=== PATIENT | male | born 1990 | race African-American/Black ===

== ENCOUNTER 2022-03-07 21:14 | Inpatient (IN) | payer SELFPAY ==
[2022-03-07] MEDS ORDERED: NA CHLORIDE 0.9% 1,000 ML ONE (22:21)
[2022-03-07 22:25] LABS: Absolute Lymphocytes (CBC) 0.9 K/uL (0.7-4.9); Hematocrit 58.8 % (39.6-49.0); Lymphocytes % 9.8 % (15.3-44.8); MPV 10.2 fL (7.6-11.3); RBC Red Blood Cell Count 7.04 M/uL (4.33-5.43)
--- NOTE | 2022-03-07 22:34 | RAD REPORT ---
EXAM DESCRIPTION: Samira Single View03/07/2022 10:26 pm CLINICAL HISTORY: Syncope COMPARISON: none FINDINGS: Calcified granuloma right lung. The lungs appear clear of acute infiltrate. The heart is normal size IMPRESSION: No acute abnormalities displayed
[2022-03-07 22:54] LABS: Potassium 4.4 mmol/L (3.5-5.1); Troponin High Sensitivity 5.9 pg/mL (<58.9)
--- NOTE | 2022-03-07 23:14 | EDPHYS ---
Physician Documentation [facility] Name: Dav Doan Age: 31 yrs Sex: Male : 1990 Arrival Date: 03/07/2022 Time: 21:16 Bed 3 Private MD: ED Physician Rolando Caraballo HPI: 03/07 23:15 This 31 yrs old Black Male presents to ER via EMS with complaints of nausea, vomiting, ms3 muscle cramping, syncope. 23:15 The patient presents to the emergency department with nausea, that is severe, vomiting, ms3 that is continuous, described as undigested food. Onset: The symptoms/episode began/occurred yesterday. Possible causes: unknown. The symptoms are aggravated by nothing. The symptoms are alleviated by nothing. Associated signs and symptoms: Pertinent positives: nausea, vomiting, syncope. Severity of symptoms: At their worst the symptoms were severe in the emergency department the symptoms are unchanged Pain is currently a 6 / 10. 31-year-old male presents via [facility] for nausea, vomiting, syncopal episode. Patient's states patient became hot at work and began sweating and had a syncopal episode. 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 Patient's states patient then came home and has been unable to keep down food or fluids. Patient states he is having thigh cramping that began last night. Patient rates his discomfort as 6/10. Patient denies alleviating or inciting factors.. Historical: - Allergies: 21:21 No Known Allergies; kd3 - Home Meds: 21:21 None [Active]; kd3 - PMHx: 21:21 None; kd3 - PSHx: 21:21 None; kd3 - Immunization history:: Adult Immunizations up to date, Client reports having NOT received the Covid vaccine. - Social history:: Smoking status: unknown. ROS: 23:15 Constitutional: Negative for fever, and chills. Neck: Negative for injury, pain, and ms3 swelling, Cardiovascular: Negative for chest pain, and palpitations. Respiratory: Negative for shortness of breath, cough, wheezing, and pleuritic chest pain, Abdomen/GI: Negative for abdominal pain, nausea, vomiting, diarrhea, and constipation. 23:15 MS/extremity: Positive for Muscle cramping. 23:15 All other systems are negative. Exam: 22:18 ECG was reviewed by the Attending Physician. ms3 23:15 Constitutional: This is a well developed, well nourished patient who is awake, alert, ms3 and in no acute distress. Head/Face: Normocephalic, atraumatic. Neck: Trachea midline, no cervical lymphadenopathy. Supple, full range of motion without nuchal rigidity, or vertebral point tenderness. No Meningismus. Chest/axilla: Normal chest wall appearance and motion. Nontender with no deformity. Cardiovascular: Regular rate and rhythm with a normal S1 and S2. No gallops, murmurs, or rubs. Normal PMI, no JVD. No pulse deficits. Respiratory: Lungs have equal breath sounds bilaterally, clear to auscultation and percussion. No rales, rhonchi or wheezes noted. No increased work of breathing, no retractions or nasal flaring. Abdomen/GI: Soft, non-tender, with normal bowel sounds. No distension or tympany. No guarding or rebound. No evidence of tenderness throughout. Skin: Warm, dry with normal turgor. Normal color with no rashes, no lesions, and no evidence of cellulitis. Psych: Awake, alert, with orientation to person, place and time. Behavior, mood, and affect are within normal limits. Vital Signs: 21:17 Pulse 80; Resp 19; Temp 98.3; Pulse Ox 95% on R/A; Weight 98.43 kg; Height 5 ft. 6 in. kd3 (167.64 cm); Pain 4/10; 21:23 BP 140 / 90; kd3 23:17 BP 130 / 90; Pulse 73; Resp 18; Pulse Ox 98% ; kd3 0603 00:38 BP 128 / 82; Pulse 72; Resp 19; Pulse Ox 99% on R/A; kd3 03/07 21:17 Body Mass Index 35.02 (98.43 kg, 167.64 cm) kd3 MDM: 03/07 21:59 Patient medically screened. ms3 23:15 Differential diagnosis: Nonspecific abd pain, Rhabdo vs ACS. Data reviewed: vital ms3 signs, nurses notes, lab test result(s), EKG, radiologic studies. Data interpreted: compliance monitor: rate is 73 beats/min, rhythm is normal sinus rhythm, with no ectopy, Interpretation: normal rate, normal rhythm, Pulse oximetry: on room air is 98 %. Interpretation: normal. Counseling: I had a detailed discussion with the patient and/or guardian regarding: the historical points, exam findings, and any diagnostic results supporting the discharge/admit diagnosis, lab results, radiology results, the need for further work-up and treatment in the hospital. ED course: Discussed case with ANTHONY Maxwell and she accepts patient as admission for Dr Blankenship.. 03/07 22:02 Order name: Basic Metabolic Panel; Complete Time: 22:58 ms3 / 22:58 Interpretation: Abnormal: CRE 4.43. ms3 / 22:02 Order name: CBC with Diff; Complete Time: 22:45 ms3 03/07 22:02 Order name: Troponin HS; Complete Time: 22:58 ms3 03/07 22:02 Order name: CK; Complete Time: 22:58 ms3 03/07 23:15 Order name: COVID-19 SARS RT PCR (Document "Date of Onset" if Symptomatic) ms3 03/07 23:51 Order name: Urine Dipstick-Ancillary EDMS 03/07 22:02 Order name: XRAY Chest (1 view); Complete Time: 22:45 ms3 02 22:02 Order name: EKG; Complete Time: 22:02 ms3 03/07 22:02 Order name: Cardiac monitoring; Complete Time: 22:25 ms3 02 22:02 Order name: EKG - Nurse/Tech; Complete Time: 22:25 ms3 03/07 22:02 Order name: IV Saline Lock; Complete Time: 22:06 ms3 02 22:02 Order name: Labs collected and sent; Complete Time: 22:14 ms3 / 22:02 Order name: O2 Per Protocol; Complete Time: 22:06 ms3 03/07 22:02 Order name: O2 Sat Monitoring; Complete Time: 22:06 ms3 /02 23:33 Order name: Urine Dipstick-Ancillary (obtain specimen); Complete Time: 23:50 sb3 EC:18 Rate is 74 beats/min. Rhythm is regular. QRS [place] is Normal. SC interval is normal. QRS ms3 interval is normal. Clinical impression: NSR w/ Non-specific ST/T Changes. Interpreted by me. Administered Medications: 22:25 Drug: NS 0.9% 1000 ml Route: IV; Rate: 1000 ml; Site: left antecubital; kd3 23:18 Follow up: Response: No adverse reaction; IV Status: Completed infusion kd3 03/08 00:39 Follow up: Response: No adverse reaction; IV Status: Completed infusion kd3 Disposition Summary: 03/07/22 23:13 Hospitalization Ordered Hospitalization Status: Inpatient Admission ms3 Provider: Juanpablo Blankenship ms3 Location: Telemetry/MedSur (Inpatient) ms3 Condition: Stable ms3 Problem: new ms3 Symptoms: are unchanged ms3 Bed/Room Type: Standard ms3 Room Assignment: 205(03/08/22 00:32) mw Diagnosis - Acute Renal Failure ms3 - Rhabdomyolysis ms3 - Nausea with vomiting, unspecified ms3 - Dehydration ms3 Forms: - Medication Reconciliation Form ms3 - SBAR form ms3 Signatures: Dispatcher [employer] EDCha Lamar RN RN mw Rolando Caraballo DO DO ms3 Saray Ray RN RN kd3 Ana Teresa PA PA sb3 Corrections: (The following items were deleted from the chart) 00:32 03/07 23:13 ms3 mw
--- NOTE | 2022-03-07 23:14 | ER ---
Nurse's Notes [facility] Name: Dav Doan Age: 31 yrs Sex: Male : 1990 Arrival Date: 03/07/2022 Time: 21:16 Bed 3 Private MD: Diagnosis: Acute Renal Failure;Rhabdomyolysis;Nausea with vomiting, unspecified;Dehydration Presentation: 03/07 21:17 Chief complaint: EMS states: 31 y/o male, toned out for pt having syncopal episodes on kd3 and off throughout the day. pt generally not feeling well, has full body cramps and headache. 1 episode of vomiting witnessed by EMS. 1 L NS bolus given en route. Coronavirus screen: Vaccine status: Patient reports being unvaccinated. Ebola Screen: No symptoms or risks identified at this time. Initial Sepsis Screen: Does the patient meet any 2 criteria? No. Patient's initial sepsis screen is negative. Does the patient have a suspected source of infection? No. Patient's initial sepsis screen is negative. Risk Assessment: Do you want to hurt yourself or someone else? Patient reports no desire to harm self or others. Onset of symptoms was March 07, 2022. 21:17 Method Of Arrival: EMS: [facility] kd3 21:17 Acuity: DUSTIN 3 kd3 Triage Assessment: 21:21 General: Appears uncomfortable, Behavior is calm, cooperative. Pain: Complains of pain kd3 in generalized aches. Neuro: Level of Consciousness is awake, alert, obeys commands, Oriented to person, place, time, situation. Cardiovascular: Patient's skin is warm and dry. Respiratory: Airway is patent Trachea midline Respiratory effort is even, unlabored, Respiratory pattern is regular, symmetrical. Historical: - Allergies: 21:21 No Known Allergies; kd3 - Home Meds: 21:21 None [Active]; kd3 - PMHx: 21:21 None; kd3 - PSHx: 21:21 None; kd3 - Immunization history:: Adult Immunizations up to date, Client reports having NOT received the Covid vaccine. - Social history:: Smoking status: unknown. Screenin:22 Abuse screen: Denies threats or abuse. Denies injuries from another. Nutritional kd3 screening: No deficits noted. Tuberculosis screening: No symptoms or risk factors identified. Fall Risk IV access (20 points). Assessment: 03/08 01:10 Reassessment: Patient and/or family updated on plan of care and expected duration. Pain kd3 level reassessed. Patient is alert, oriented x 3, equal unlabored respirations, skin warm/dry/pink. Patient states feeling better. General: Appears in no apparent distress. Behavior is calm, cooperative. Neuro: Level of Consciousness is awake, alert, obeys commands, Oriented to person, place, time, situation. Cardiovascular: Patient's skin is warm and dry. Respiratory: Airway is patent Trachea midline Respiratory effort is even, unlabored, Respiratory pattern is regular. Vital Signs: 03/07 21:17 Pulse 80; Resp 19; Temp 98.3; Pulse Ox 95% on R/A; Weight 98.43 kg; Height 5 ft. 6 in. kd3 (167.64 cm); Pain 4/10; 21:23 BP 140 / 90; kd3 23:17 BP 130 / 90; Pulse 73; Resp 18; Pulse Ox 98% ; kd3 03/08 00:38 BP 128 / 82; Pulse 72; Resp 19; Pulse Ox 99% on R/A; kd3 03/07 21:17 Body Mass Index 35.02 (98.43 kg, 167.64 cm) kd3 ED Course: 03/07 21:16 Patient arrived in ED. as6 21:16 Saray Ray, RN is Primary Nurse. kd3 21:16 Rolando Caraballo DO is Attending Physician. ms3 21:21 Triage completed. kd3 21:21 Arm band placed on right wrist. kd3 21:23 Patient has correct armband on for positive identification. kd3 22:28 XRAY Chest (1 view) In Process Unspecified. EDMS 23:12 Juanpablo Blankenship is Hospitalizing Provider. ms3 03/08 00:37 No provider procedures requiring assistance completed. Maintain EMS IV. Dressing kd3 intact. Good blood return noted. Site clean \T\ dry. Gauge \T\ site: 20 l ac. Patient admitted, IV remains in place. Administered Medications: 03/07 22:25 Drug: NS 0.9% 1000 ml Route: IV; Rate: 1000 ml; Site: left antecubital; kd3 23:18 Follow up: Response: No adverse reaction; IV Status: Completed infusion kd3 03/08 00:39 Follow up: Response: No adverse reaction; IV Status: Completed infusion kd3 Medication: 03/07 21:23 VIS not applicable for this client. kd3 Outcome: 23:13 Decision to Hospitalize by Provider. ms3 03/08 00:37 Admitted to Med/surg room 205, Report called to attempted report to 2nd floor kd3 Condition: stable Discharge instructions given to patient, family, Instructed on the need for admit, Demonstrated understanding of instructions. 01:19 Patient left the ED. as6 Signatures: Dispatcher [employer] EDMS Rolando Caraballo DO DO ms3 Jace Naqvi, RN RN as6 Saray Ray, RN RN kd3
[2022-03-07 23:51] LABS: Urine Blood 1+ (Negative); Urine Glucose Negative (Negative); Urine Protein 2+ (Negative); Urine Specific Gravity >=1.030 (1.005-1.030)
--- NOTE | 2022-03-08 00:17 | P.HP ---
Certification for Inpatient Patient admitted to: Inpatient With expected LOS: <2 Midnights Patient will require the following post-hospital care: None Practitioner: I am a practitioner with admitting privileges, knowledge of patient current condition, hospital course, and medical plan of care. Services: Services provided to patient in accordance with Admission requirements found in Title 42 Section 412.3 of the Code of Federal Regulations Patient History Date of Service: 03/08/22 Reason for admission: Rhabdomyolysis History of Present Illness: Patient is a 31 y/o male with no medical problems who presented to the ED via EMS after being toned out for syncopal episodes on and off throughout the day. Patient reports full body cramps, headache, nausea, vomiting, and generalized weakness. 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 He in not sure how long he was down. These episodes continued when he got home and he couldn't hold down any food or water. He later admitted to recent use of ecstasy. Labs significant for sodium 133, Cr 4.43, BUN 44, and CPK 1150. He was given 1L fluid by EMS and an additional liter in the ED. Will admit patient for further evaluation and treatment. Allergies No Known Allergies Allergy (Verified 03/08/22 00:23) Home Medications: NK [No Home Meds] 03/08/22 - Past Medical/Surgical History Diabetic: No Past Medical History: Patient denies medical history Past Surgical History: Patient denies surgical history Psychosocial/ Personal History: Patient lives at home with his significant othe r. - Social History Smoking Status: Current every day smoker Alcohol use: Yes CD- Drugs: Yes Caffeine use: Yes Place of Residence: Home Review of Systems General: Weakness, As per HPI Gastrointestinal: Nausea, Vomiting, Abdominal Pain Physical Examination - Physical Exam General: Alert, In no apparent distress HEENT: Atraumatic, PERRLA, EOMI, Sclerae nonicteric Neck: Supple, 2+ carotid pulse no bruit, No LAD, Without JVD or thyroid abnormality Respiratory: Clear to auscultation bilaterally, Normal air movement Cardiovascular: Regular rate/rhythm, Normal S1 S2 Gastrointestinal: Normal bowel sounds, No tenderness Musculoskeletal: No tenderness Integumentary: No rashes Neurological: Normal speech, Normal strength at 5/5 x4 extr, Normal affect - Studies Laboratory Data (last 24 hrs) 03/07/22 22:12: WBC 8.8, Hgb 19.6 H, Hct 58.8 H, Plt Count 235 03/07/22 22:12: Sodium 133 L, Potassium 4.4, BUN 44 H, Creatinine 4.43 H, Glucose 154 H Assessment and Plan - Problems (Diagnosis) (1) Rhabdomyolysis Current Visit: Yes Status: Acute Qualifiers: Rhabdomyolysis type: non-traumatic Qualified Code(s): M62.82 - Rhabdomyolysis (2) Acute renal failure Current Visit: Yes Status: Acute Qualifiers: Acute renal failure type: unspecified Qualified Code(s): N17.9 - Acute kidney failure, unspecified (3) Dehydration Current Visit: Yes Status: Acute - Plan -Aggressive IV hydration -Trend CPK and creatinine -Nephrology consulted -Encourage PO intake -Heparin for VTE ppx -Full code Discharge Plan: Home Plan to discharge in: 48 Hours - Advance Directives Does patient have a Living Will: No Does patient have a Durable POA for Healthcare: No - Code Status/Comfort Care Code Status Assessed: Yes (Full) Critical Care: No Time Spent Managing Pts Care (In Minutes): 50
[2022-03-08] MEDS ORDERED: ACETAMINOPHEN 500 MG TAB PO PRN (01:03)
[2022-03-08] MEDS ORDERED: ONDANSETRON 4 MG/2 ML VIAL IV PRN (01:03)
[2022-03-08] MEDS: NA CHLORIDE 0.9% 1,000 ML IV SCH ×3 (01:31→19:07)
[2022-03-08] MEDS: HEPARIN 5000 UNIT/ML 1 ML VIAL SQ SCH ×3 (01:32→16:51)
[2022-03-08 01:47] VITALS: BMI 32.8
[2022-03-08 04:30] LABS: Absolute Lymphocytes (CBC) 1.2 K/uL (0.7-4.9); Hematocrit 51.9 % (39.6-49.0); Lymphocytes % 12.7 % (15.3-44.8); MPV 10.6 fL (7.6-11.3); RBC Red Blood Cell Count 6.27 M/uL (4.33-5.43)
[2022-03-08 05:39] LABS: Urine Appearance Clear (Clear); Urine Bilirubin Negative (Negative); Urine Blood Trace-lysed (Negative); Urine Color Yellow (Yellow); Urine Glucose Negative (Negative); Urine Protein 1+ (Negative); Urine Specific Gravity >=1.030 (1.005-1.030); Urine Urobilinogen 0.2 mg/dL (0.2-1.0)
[2022-03-08 05:46] LABS: Urine Microscopic Reflex ORDER UMIC
[2022-03-08 05:50] LABS: Urine Bacteria 20-50 /HPF (NONE SEEN)
[2022-03-08 05:51] LABS: Urine Amorphous Sediment 1+ /HPF (NONE SEEN); Urine Mucus 3+ /HPF (NONE SEEN)
[2022-03-08 05:55] LABS: Barbiturates NEGATIVE (NEGATIVE); Benzodiazepines NEGATIVE (NEGATIVE); Cocaine NEGATIVE (NEGATIVE); METHAMPHETAM POSITIVE (NEGATIVE); Methadone NEGATIVE (NEGATIVE); Opiates NEGATIVE (NEGATIVE); Phencyclidine NEGATIVE (NEGATIVE); THC Cannibis POSITIVE (NEGATIVE)
--- NOTE | 2022-03-08 11:17 | P.CNS ---
Date of Consult: 03/08/22 Reason for Consult: stefan Requesting Physician: ana luisa hawthorne Chief Complaint: Rhabdomyolysis History of Present Illness: 31M w/ no known PMHx who p/w syncope. 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 He is noted to have STEFAN w/ mild rhabdo. He received IVF. STEFAN improving. Allergies No Known Allergies Allergy (Verified 03/08/22 00:23) Home Medications: NK [No Home Meds] 03/08/22 - Past Medical/Surgical History Diabetic: No Psychosocial/ Personal History: Patient lives at home with his significant other. - Social History Smoking Status: Unknown if ever smoked Alcohol use: Yes CD- Drugs: Yes Caffeine use: Yes Place of Residence: Home Review of Systems General: Weakness Eyes: Unremarkable ENT: Unremarkable Respiratory: Unremarkable Cardiovascular: Other (syncope), Unremarkable Gastrointestinal: Unremarkable Genitourinary: Unremarkable Musculoskeletal: Unremarkable Neurological: Unremarkable Lymphatics: Unremarkable Physical Examination Temp Pulse Resp BP Pulse Ox 98.7 F 70 18 125/79 92 03/08/22 08:00 03/08/22 08:00 03/08/22 08:00 03/08/22 08:00 03/08/22 08:00 General: In no apparent distress HEENT: Atraumatic, Normocephalic Neck: Supple, JVD not distended Respiratory: Clear to auscultation bilaterally Cardiovascular: No rubs, No murmurs Gastrointestinal: Soft and benign, No guarding Musculoskeletal: No clubbing Integumentary: No warmth Neurological: Normal speech, Normal tone Lymphatics: No axilla or inguinal lymphadenopathy Urinary: Other (no bladder distention) External genitalia: Deferred Rectal: Deferred Laboratory Data (last 24 hrs) 03/07/22 22:12: WBC 8.8, Hgb 19.6 H, Hct 58.8 H, Plt Count 235 03/07/22 22:12: Sodium 133 L, Potassium 4.4, BUN 44 H, Creatinine 4.43 H, Glucose 154 H Conclusions/Impression: # STEFAN 2/2 prerenal state +/- ATN Baseline renal fxn ? SCr 4.4 on adm, improved to 3.2 w/ IVF Has mild rhabdo, not high enough to be contributory to stefan PTH not sig elevated, no advanced CKD at baseline F/u renal US, urine chem, random upcr Cont IVF [place] po fluid intake # Syncope likely 2/2 hypovolemia F/u TTE IVF as above # Hyponatremia Serum Na 133 on adm Improved to 136, monitor # HyperCa Mild, resolved, monitor IVF as above # Polysubstance use Drug screen +amphetamine, + THC Advised cessation
--- NOTE | 2022-03-08 11:59 | P.PN ---
Date of Service: 03/08/22 Patient seen and examined. He has no complaint. He is eating well, denies any nausea or vomiting or diarrhea. Serum creatinine is trending down. Vitals have been stable. Diagnosis: Syncope-likely secondary to dehydration. Acute renal failure. Plan: STEFAN is responding to IV fluid Continue IV hydration and monitor renal function. Cardiac monitoring, echocardiogram. Diet as tolerated..
--- NOTE | 2022-03-08 14:04 | RAD REPORT ---
EXAM DESCRIPTION: US - Renal Ultrasound-Complete - 03/08/2022 1:29 pm CLINICAL HISTORY: liz, assess for hydronephrosis, pyelonephritis COMPARISON: No comparisons FINDINGS: The right kidney measures approximately 9.7 x 4.9 x 6.2 cm. The left kidney measures appr oximately 10.4 x 6.7 x 5.6 cm. Renal cortical thickness is normal. Both kidneys show a slight increas e in cortical echogenicity consistent with underlying medical renal disease. No hydronephrosis or darron picious renal mass. Bladder assessment was limited but grossly clear of mass or abnormal wall thickening. No stone or int raluminal abnormality seen. IMPRESSION: No hydronephrosis of either kidney. Increased cortical echogenicity consistent with underlying medical renal disease.
[2022-03-08 14:57] LABS: UR PROTEIN 21.1 mg/dL (<11.9); Urine Protein/Creatinine Ratio 0.1 ratio (<0.15)
[2022-03-09] MEDS: HEPARIN 5000 UNIT/ML 1 ML VIAL SQ SCH ×2 (00:35→08:56)
[2022-03-09 01:07] VITALS: O2SAT 96
[2022-03-09] MEDS: NA CHLORIDE 0.9% 1,000 ML IV SCH ×2 (04:58→09:03)
[2022-03-09 06:11] LABS: Absolute Lymphocytes (CBC) 2.2 K/uL (0.7-4.9); Hematocrit 45.8 % (39.6-49.0); Lymphocytes % 41.2 % (15.3-44.8); MPV 9.9 fL (7.6-11.3); RBC Red Blood Cell Count 5.44 M/uL (4.33-5.43)
[2022-03-09 06:25] LABS: Potassium 3.9 mmol/L (3.5-5.1)
[2022-03-09 11:42] VITALS: BP 122/75; TEMP 98.3
--- NOTE | 2022-03-09 12:29 | P.DS ---
Admission Date: 03/08/22 Discharge Date: 03/09/22 Disposition: ROUTINE DISCHARGE Discharge Condition: FAIR Reason for Admission: Rhabdomyolysis - Problems (1) Acute renal failure Current Visit: Yes Status: Acute Qualifiers: Acute renal failure type: unspecified Qualified Code(s): N17.9 - Acute kidney failure, unspecified (2) Syncope Current Visit: Yes Status: Acute (3) Rhabdomyolysis Current Visit: Yes Status: Acute Qualifiers: Rhabdomyolysis type: non-traumatic Qualified Code(s): M62.82 - Rhabdomyolysis (4) Dehydration Current Visit: Yes Status: Acute (5) Polysubstance abuse Current Visit: Yes Status: Acute Brief History of Present Illness: Patient is a 31 y/o male with no medical problems who presented to the ED via EMS after being toned out for syncopal episodes on and off throughout the day. Patient reports full body cramps, headache, nausea, vomiting, and generalized weakness. 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 He in not sure how long he was down. These episodes continued when he got home and he couldn't hold down any food or water. He later admitted to recent use of ecstasy. Labs significant for sodium 133, Cr 4.43, BUN 44, and CPK 1150. He was given 1L fluid by EMS and an additional liter in the ED. Will admit patient for further evaluation and treatment. Hospital Course: Patient admitted to the medical floor and hydrated with IV fluid. His renal function improved to normal with IV hydration. Patient was evaluated by nephrology- Dr. Rose who assisted with management. Patient given history of possible syncope. Echocardiogram was done and the result is pending. His blood pressure was stable and he was asymptomatic throughout the hospital stay. STEFAN and rhabdomyolysis have resolved. Patient is deemed stable for discharge. Vital Signs/Physical Exam: Temp Pulse Resp BP Pulse Ox 98.3 F 74 18 122/75 95 03/09/22 11:41 03/09/22 11:41 03/09/22 11:41 03/09/22 11:41 03/09/22 11:41 General: Alert, In no apparent distress, Oriented x3 HEENT: Mucous membr. moist/pink Neck: JVD not distended Respiratory: Clear to auscultation bilaterally, Normal air movement Cardiovascular: No edema, Regular rate/rhythm, Normal S1 S2 Gastrointestinal: Normal bowel sounds, Soft and benign, Non-distended, No tenderness Musculoskeletal: No swelling, No tenderness Integumentary: No rashes, No erythema, No cyanosis Neurological: Normal speech, Normal strength at 5/5 x4 extr, Cranial nerves 3-12 intact Laboratory Data at Discharge: WBC 5.3 K/uL (4.3-10.9) D 03/09/22 05:50 Hgb 15.1 g/dL (13.6-17.9) D 03/09/22 05:50 Hct 45.8 % (39.6-49.0) 03/09/22 05:50 Plt Count 181 K/uL (152-406) 03/09/22 05:50 Sodium 140 mmol/L (136-145) 03/09/22 05:50 Potassium 3.9 mmol/L (3.5-5.1) 03/09/22 05:50 BUN 24 mg/dL (7-18) H D 03/09/22 05:50 Creatinine 1.30 mg/dL (0.55-1.3) D 03/09/22 05:50 Glucose 106 mg/dL (74-106) 03/09/22 05:50 Home Medications: NK [No Home Meds] 03/08/22 Diet: AHA Activity: Ad brianna Time spent managing pt's care (in minutes): 33
--- NOTE | 2022-03-09 14:30 | EKG ---
Test Date: 2022-03-07 Test Time: 22:18:45 Slasher Machine Operator: SHANNON MEASUREMENT RESULTS: Intervals: Rate: 74 DC: 180 QRSD: 134 QT: 392 QTc: 435 [place]: P: 71 DC: 180 QRS: 57 T: 39 INTERPRETIVE STATEMENTS: Normal sinus rhythm Nonspecific intraventricular block Abnormal ECG No previous ECG available for comparison Electronically Signed On 03-09-22 14:29:48 CDT by Diego Flanagan
--- NOTE | 2022-03-11 06:52 | ECHO ---
HEIGHT: 5 ft 6 in WEIGHT: 203 lb 9.6 oz DATE OF STUDY: 03/08/[address]: ana luisa hawthorne 2-DIMENSIONAL: YES M.MODE: YES DOPPLER: YES COLOR FLOW: YES TDS: PORTABLE: YES DEFINITY: BUBBLE STUDY: DIAGNOSIS: SYNCOPE CARDIAC HISTORY: CATHERIZATION: NO SURGERY: NO PROSTHETIC VALVE: NO PACEMAKER: NO MEASUREMENTS (cm) DIASTOLIC (NORMALS) SYSTOLIC (NORMALS) IVSd 1.0 (0.6-1.2) LA Diam 3.1 (1.9-4.0) LVEF 55-60% LVIDd 4.5 (3.5-5.7) LVIDs 2.8 (2.0-3.5) %FS 39% LVPWd 1.1 (0.6-1.2) Ao Diam 2.9 (2.0-3.7) 2 DIMENSIONAL ASSESSMENT: RIGHT ATRIUM: NORMAL LEFT ATRIUM: NORMAL RIGHT VENTRICLE: NORMAL LEFT VENTRICLE: NORMAL TRICUSPID VALVE: NORMAL MITRAL VALVE: NORMAL PULMONIC VALVE: NORMAL AORTIC VALVE: NORMAL PERICARDIAL EFFUSION: NONE AORTIC ROOT: NORMAL LEFT VENTRICULAR WALL MOTION: NORMAL DOPPLER/COLOR FLOW: MILD TRICUSPID REGURGITATION. MILD PULMONIC INSUFFICIENCY COMMENTS: NORMAL LEFT VENTRICULAR EJECTION FRACTION 55-60%. NORMAL WALL MOTION. MILD TRICUSPID REGURGITATION. MILD PULMONIC INSUFFICIENCY TECHNOLOGIST: LALO JOSÉ
== END 2022-03-09 13:00 | disposition home or self-care (01) | DRG 683 ==
LOC: ER 21:14 → ERHOLD 03-08 00:05 → 2ND 03-08 00:51
PROVIDERS: ADMIT Internal Medicine; ATTEND Internal Medicine
DX: N17.9 Acute kidney failure, unspecified (principal); M62.82 Rhabdomyolysis; E87.1 Hypo-osmolality and hyponatremia; E86.0 Dehydration; F17.210 Nicotine dependence, cigarettes, uncomplicated; F19.10 Other psychoactive substance abuse, uncomplicated; Z20.822 Contact with and (suspected) exposure to COVID-19
CPT/HCPCS: 36415; 71045; 76770; 80048; 80307; 81003; 81015; 82550; 82570; 83935; 83970; 84132; 84156; 84300; 84484; 85025; 87086; 87088; 93005; 93306; 96360; 99285; J1644; J7030; U0003

== ENCOUNTER 2022-05-08 10:33 | Emergency (ER) | payer SELFPAY ==
[2022-05-08] MEDS ORDERED: HYDROCODONE/APAP 10/325 TAB ONE (10:53)
[2022-05-08] MEDS ORDERED: IBUPROFEN 400 MG TAB ONE (10:53)
--- NOTE | 2022-05-08 11:30 | RAD REPORT ---
EXAM DESCRIPTION: RAD - Ankle Right 3 View - 05/08/2022 10:52 am CLINICAL HISTORY: Right ankle pain status post injury FINDINGS: Minimally displaced fracture distal fibula. Widening of the medial clear space may indicate an injury to the deltoid ligament.
--- NOTE | 2022-05-08 11:30 | RAD REPORT ---
EXAM DESCRIPTION: RAD - Foot Right 3 View - 05/08/2022 10:52 am CLINICAL HISTORY: Right foot pain status post injury FINDINGS: Minimally displaced fracture distal fibula. Widening of the medial clear space may indicate an injury to the deltoid ligament. Mild lateral subluxation of the second distal phalanx presumably chronic
--- NOTE | 2022-05-08 11:40 | EDPHYS ---
Physician Documentation [facility] Name: Dav Doan Age: 32 yrs Sex: Male : 1990 Arrival Date: 05/08/2022 Time: 10:34 Bed 8 Private MD: KEVIN Physician Milton Ellis HPI: 05/08 11:28 This 32 yrs old Black Male presents to ER via Law Enforcement with complaints of Foot alban Pain. 11:28 The patient presents with pain, that is acute. The complaints affect the right foot, alban dorsum of right foot. Context: resulted from a mis-step by the patient. Onset: The symptoms/episode began/occurred last night. Modifying factors: The symptoms are alleviated by elevation of extremity, ice packs, the symptoms are aggravated by weight bearing, movement, wearing shoes. Associated signs and symptoms: The patient has no apparent associated signs or symptoms. Severity of symptoms: At their worst the symptoms were moderate, in the emergency department the symptoms are unchanged. The patient has not experienced similar symptoms in the past. 11:29 Severity of symptoms: At their worst the symptoms were moderate. alban Historical: - Allergies: 11:02 No Known Allergies; em6 - Immunization history:: Client reports receiving the 1st dose of the Covid vaccine. - Social history:: Smoking status: Patient denies any tobacco usage or history of. - Family history:: not pertinent. ROS: 11:29 Constitutional: Negative for fever, chills, and weight loss, Eyes: Negative for injury, alban pain, redness, and discharge, ENT: Negative for injury, pain, and discharge, Neck: Negative for injury, pain, and swelling, Cardiovascular: Negative for chest pain, palpitations, and edema, Respiratory: Negative for shortness of breath, cough, wheezing, and pleuritic chest pain, Abdomen/GI: Negative for abdominal pain, nausea, vomiting, diarrhea, and constipation, Back: Negative for injury and pain, : Negative for injury, bleeding, discharge, and swelling, Skin: Negative for injury, rash, and discoloration, Neuro: Negative for headache, weakness, numbness, tingling, and seizure, Psych: Negative for depression, anxiety, suicide ideation, homicidal ideation, and hallucinations, Allergy/Immunology: Negative for hives, rash, and allergies, Endocrine: Negative for neck swelling, polydipsia, polyuria, polyphagia, and marked weight changes, Hematologic/Lymphatic: Negative for swollen nodes, abnormal bleeding, and unusual bruising. 11:29 MS/extremity: Positive for decreased range of motion, pain, swelling, tenderness, of the right ankle and anterior aspect of right ankle. Exam: 11:29 Constitutional: This is a well developed, well nourished patient who is awake, alert, alban and in no acute distress. Head/Face: Normocephalic, atraumatic. Eyes: Pupils equal round and reactive to light, extra-ocular motions intact. Lids and lashes normal. Conjunctiva and sclera are non-icteric and not injected. Cornea within normal limits. Periorbital areas with no swelling, redness, or edema. ENT: Nares patent. No nasal discharge, no septal abnormalities noted. Tympanic membranes are normal and external auditory canals are clear. Oropharynx with no redness, swelling, or masses, exudates, or evidence of obstruction, uvula midline. Mucous membranes moist. Neck: Trachea midline, no thyromegaly or masses palpated, and no cervical lymphadenopathy. Supple, full range of motion without nuchal rigidity, or vertebral point tenderness. No Meningismus. Chest/axilla: Normal chest wall appearance and motion. Nontender with no deformity. No lesions are appreciated. Cardiovascular: Regular rate and rhythm with a normal S1 and S2. No gallops, murmurs, or rubs. Normal PMI, no JVD. No pulse deficits. Respiratory: Lungs have equal breath sounds bilaterally, clear to auscultation and percussion. No rales, rhonchi or wheezes noted. No increased work of breathing, no retractions or nasal flaring. Abdomen/GI: Soft, non-tender, with normal bowel sounds. No distension or tympany. No guarding or rebound. No evidence of tenderness throughout. Back: No spinal tenderness. No costovertebral tenderness. Full range of motion. Male : Normal genitalia with no discharge or lesions. Skin: Warm, dry with normal turgor. Normal color with no rashes, no lesions, and no evidence of cellulitis. Neuro: Awake and alert, GCS 15, oriented to person, place, time, and situation. Cranial nerves II-XII grossly intact. Motor strength 5/5 in all extremities. Sensory grossly intact. Cerebellar exam normal. Normal gait. Psych: Awake, alert, with orientation to person, place and time. Behavior, mood, and affect are within normal limits. 11:29 Musculoskeletal/extremity: Extremities: grossly normal except: decreased ROM, pain, swelling, tenderness, ROM: full passive range of motion, limited active range of motion, limited active range of motion due to pain, limited passive range of motion due to pain, Circulation is intact in all extremities. Sensation intact. Compartment Syndrome exam of affected extremity: is normal. Joints: effusion, limited range of motion, pain at rest, painful range of motion, swelling, tenderness, Weight bearing: is unable to bear weight, DVT Exam: negative Homans' sign noted on exam, no appreciated bluish discoloration, no erythema, no increased warmth, pain, swelling, tenderness. Vital Signs: 10:35 BP 127 / 102; Pulse 88; Resp 16; Temp 98.7; Pulse Ox 97% on R/A; Weight 92.53 kg; em6 Height 5 ft. 6 in. (167.64 cm); Pain 10/10; 11:38 BP 157 / 109; Pulse 76; Resp 18; Pulse Ox 96% on R/A; em6 11:50 BP 116 / 82; Pulse 74; Resp 16; Pulse Ox 96% on R/A; em6 12:12 BP 116 / 82; Pulse 74; Resp 16; Pulse Ox 96% on R/A; em6 10:35 Body Mass Index 32.93 (92.53 kg, 167.64 cm) em6 MDM: 10:34 Patient medically screened. [facility] 05/08 10:35 Order name: Foot Right 3 View XRAY; Complete Time: 12:25 [facility] 05/08 10:35 Order name: Ankle Right 3 View XRAY; Complete Time: 12:25 [facility] 05/08 10:35 Order name: Ice pack; Complete Time: 10:42 [facility] 05/08 11:27 Order name: Splint - Ankle: Posterior; Complete Time: 12:18 [facility] 05/08 11:28 Order name: Crutches; Complete Time: 12:18 [facility] Administered Medications: 10:51 Drug: Motrin (ibuprofen) 800 mg Route: PO; em6 11:50 Follow up: Response: No adverse reaction em6 10:51 Drug: [place] (HYDROcodone-acetaminophen) 10 mg-325 mg 1 tabs Route: PO; em6 11:50 Follow up: BP 116 / 82; Pulse 74 bpm; Resp 16 bpm; Pulse Ox 96% RA; Response: No em6 adverse reaction; RASS: Alert and Calm (0) Disposition Summary: 05/08/22 11:39 Discharge Ordered Location: Home alban Problem: new alban Symptoms: have improved alban Condition: Stable alban Diagnosis - Displaced fracture of lateral malleolus of right fibula alban - Other specific joint derangements of right ankle, not elsewhere classified alban Followup: alban - With: Private Physician - When: 2 - 3 days - Reason: Recheck today's complaints, Continuance of care, Re-evaluation by your physician Followup: alban - With: Piero Delatorre MD - When: 2 - 3 days - Reason: Recheck today's complaints, Re-evaluation by your physician Discharge Instructions: - Discharge Summary Sheet alban - Ankle Fracture alban - Ankle Fracture, [id number] alban - Complex Ankle Fracture alban Forms: - Medication Reconciliation Form alban - Thank You Letter alban - Antibiotic Education alban - Prescription Opioid Use alban Prescriptions: - Ibuprofen 600 mg Oral Tablet - take 1 tablet by ORAL route every 6 hours As needed take with food; 30 tablet; alban Refills: 0, Product Selection Permitted - Tylenol-Codeine #3 300 mg-30 mg Oral - take 2 tablet by ORAL route every 6 hours; 24 tablet; Refills: 0, Product alban Selection Permitted Signatures: Dispatcher [employer] Milton Keyes MD MD cha Martinez, Erika, RN RN em6 Corrections: (The following items were deleted from the chart) 11:27 10:35 Walking boot ordered. [place]
--- NOTE | 2022-05-08 11:40 | ER ---
Nurse's Notes [facility] Name: Dav Doan Age: 32 yrs Sex: Male : 1990 Arrival Date: 05/08/2022 Time: 10:34 Bed 8 Private MD: Diagnosis: Displaced fracture of lateral malleolus of right fibula;Other specific joint derangements of right ankle, not elsewhere classified Presentation: 05/08 10:35 Chief complaint: Patient states: " I was walking and I didn't see the step and I em6 stepped down and hurt my ankle. afterwards it started hurting and I couldn't put pressure on my leg. It hurts to walk. ". Coronavirus screen: Client denies travel out of the [place] in the last 14 days. At this time, the client does not indicate any symptoms associated with coronavirus-19. Ebola Screen: Patient negative for fever greater than or equal to 101.5 degrees Fahrenheit, and additional compatible Ebola Virus Disease symptoms Patient denies exposure to infectious person. Patient denies travel to an Ebola-affected area in the 21 days before illness onset. Initial Sepsis Screen: Does the patient meet any 2 criteria? No. Patient's initial sepsis screen is negative. Does the patient have a suspected source of infection? No. Patient's initial sepsis screen is negative. Risk Assessment: Do you want to hurt yourself or someone else? Patient reports no desire to harm self or others. Onset of symptoms was May 07, 2022. 10:35 Method Of Arrival: Law Enforcement: [facility] 10:35 Acuity: DUSTIN 3 em6 Historical: - Allergies: 11:02 No Known Allergies; em6 - Immunization history:: Client reports receiving the 1st dose of the Covid vaccine. - Social history:: Smoking status: Patient denies any tobacco usage or history of. - Family history:: not pertinent. Screenin:01 Abuse screen: Denies threats or abuse. Nutritional screening: No deficits noted. em6 Tuberculosis screening: No symptoms or risk factors identified. Fall Risk None identified. Fall in past 12 months (25 points). No secondary diagnosis (0 pts). No IV (0 pts). Ambulatory Aid- None/Bed Rest/Nurse Assist (0 pts). Gait- Normal/Bed Rest/Wheelchair (0 pts) Mental Status- Oriented to own ability (0 pts). Total Srivastava Fall Scale indicates Low Risk Score (25-44 pts). Fall prevention measures have been instituted. Side Rails Up X 2 Placed close to Nursing Station Frequent Obs/Assesments occuring As available Patient and Family Educated on Fall Prevention Program and strategies. Assessment: 10:35 General: Appears in no apparent distress. comfortable, Behavior is calm, cooperative. em6 Pain: Complains of pain in right ankle Pain does not radiate. Pain currently is 10 out of 10 on a pain scale. Quality of pain is described as sharp, Pain began 1 day ago. Is continuous. Neuro: Zhang Agitation-Sedation Scale (RASS): 0 - Alert and Calm Level of Consciousness is awake, alert, obeys commands, Oriented to person, place, time, situation. Cardiovascular: Heart tones present Capillary refill < 3 seconds Patient's skin is warm and dry. Pulses are palpable in right dorsalis pedis artery. Respiratory: Airway is patent Respiratory effort is even, unlabored, Respiratory pattern is regular, symmetrical, Breath sounds are clear bilaterally. GI: No signs and/or symptoms were reported involving the gastrointestinal system. : No signs and/or symptoms were reported regarding the genitourinary system. EENT: No signs and/or symptoms were reported regarding the EENT system. Derm: No signs and/or symptoms reported regarding the dermatologic system. Musculoskeletal: Capillary refill < 3 seconds, Swelling present in right ankle. 11:36 Reassessment: Patient appears in no apparent distress at this time. Patient and/or em6 family updated on plan of care and expected duration. Pain level reassessed. Patient is alert, oriented x 3, equal unlabored respirations, skin warm/dry/pink. Pain: Complains of pain in left ankle Pain currently is 8 out of 10 on a pain scale. 12:14 Reassessment: Patient appears in no apparent distress at this time. No changes from em6 previously documented assessment. waiting on xray copy for [place] [employer]. . Vital Signs: 10:35 BP 127 / 102; Pulse 88; Resp 16; Temp 98.7; Pulse Ox 97% on R/A; Weight 92.53 kg; em6 Height 5 ft. 6 in. (167.64 cm); Pain 10/10; 11:38 BP 157 / 109; Pulse 76; Resp 18; Pulse Ox 96% on R/A; em6 11:50 BP 116 / 82; Pulse 74; Resp 16; Pulse Ox 96% on R/A; em6 12:12 BP 116 / 82; Pulse 74; Resp 16; Pulse Ox 96% on R/A; em6 10:35 Body Mass Index 32.93 (92.53 kg, 167.64 cm) em6 ED Course: 10:34 Patient arrived in ED. alban 10:34 Milton Ellis MD is Attending Physician. alban 10:41 Triage completed. em6 10:42 Ethan Bhagat, LAZARUS is Primary Nurse. jd3 10:54 Foot Right 3 View XRAY In Process Unspecified. EDMS 10:54 Ankle Right 3 View XRAY In Process Unspecified. EDMS 11:02 Arm band placed on. em6 11:02 Patient has correct armband on for positive identification. Bed in low position. Call em6 light in reach. Side rails up X 1. Security at bedside. Pulse ox on. NIBP on. 11:37 Piero Delatorre MD is Referral Physician. alban 11:40 No provider procedures requiring assistance completed. Orthoglass splint: Posterior em6 short lleg splint applied on right leg. capillary refill <3. Patient is able to move his five toes. 12:54 Patient did not have IV access during this emergency room visit. em6 Administered Medications: 10:51 Drug: Motrin (ibuprofen) 800 mg Route: PO; em6 11:50 Follow up: Response: No adverse reaction em6 10:51 Drug: [place] (HYDROcodone-acetaminophen) 10 mg-325 mg 1 tabs Route: PO; em6 11:50 Follow up: BP 116 / 82; Pulse 74 bpm; Resp 16 bpm; Pulse Ox 96% RA; Response: No em6 adverse reaction; RASS: Alert and Calm (0) Medication: 11:03 VIS not applicable for this client. em6 Outcome: 11:39 Discharge ordered by . alban 12:54 Patient left the ED. bp 12:54 Discharged to Law Enforcement em6 12:54 Condition: stable 12:54 Discharge instructions given to patient, police, Instructed on discharge instructions, follow up and referral plans. medication usage, crutch walking, Demonstrated understanding of instructions, follow-up care, medications, crutch walking, Prescriptions given X 2. Signatures: Dispatcher [employer] Milton Keyes MD MD cha Davies, Jonathon, RN RN Pedro Mcmillan RN RN bp Martinez, Erika, RN RN em6 Corrections: (The following items were deleted from the chart) 12: 12:18 BP 116 / 82; Pulse 74 bpm; Resp 16 bpm; Pulse Ox 96% RA; Response: No adverse em6 reaction; RASS: Alert and Calm (0) em6 12: 12:18 Response: No adverse reaction em6 em6
[2022-05-08 13:00] VITALS: TEMP 98.7
[2022-05-08 13:02] VITALS: O2SAT 96
[2022-05-08 13:04] VITALS: BP 116/82
== END 2022-05-08 12:54 | disposition home or self-care (01) ==
LOC: ER 10:33
PROC: 2W3QX1Z Immobilization of Right Lower Leg using Splint (ICD-10-PCS; principal; 2022-05-08)
DX: S82.61XA Displaced fracture of lateral malleolus of right fibula, initial encounter for closed fracture (principal); M24.871 Other specific joint derangements of right ankle, not elsewhere classified